=== PATIENT | female | born 1960 | race Caucasian/White ===

== ENCOUNTER 2024-06-05 22:05 | Inpatient (IN) | payer OTHER, SELFPAY ==
[2024-06-05] VITALS (9 sets, daily range): BP systolic 153–164; BP diastolic 90–95; PULSE 105–112; RESP 20–24; TEMP 36.7; O2SAT 89–92
--- NOTE | ~2024-06-05 | XR_ITS ---
EXAMINATION: XR abdomen gastric tube insert DATE: 06/05/2024 23:51 INDICATION: Nasogastric tube placement TECHNIQUE: A supine view of the upper abdomen and mid to lower chest was obtained for evaluation of feeding tube placement. COMPARISON: None. FINDINGS: Nasogastric tube is not identified within the visualized chest and abdomen. Large right pleural effus ion with associated partial collapse of the right lung. Left lung is clear with no pleural effusion. Right heart border is obscured. The left side of the cardiomediastinal silhouette is unremarkable. IMPRESSION: 1. Nasogastric tube is not identified in the visualized chest or abdomen. 2. Large right pleural effusion with partial collapse of the right lung. Reviewed, dictated and finalized at location A. AISAL ANALYST
--- NOTE | ~2024-06-05 | CT_ITS ---
EXAMINATION: CT brain wo con DATE: 06/05/2024 22:59 INDICATION: Altered mental status TECHNIQUE: Computed tomography (CT) of the head was performed without intravenous contrast. Sagittal and coronal reconstructions were performed. The mA was adjusted according to patient size. Iterative reconstruction technique was employed. The dose-length product was 1362.00 mGy-cm. COMPARISON: None FINDINGS: There is some streak artifact on both initial and repeat imaging which mildly limits evaluation as pr ominently at the level of the central cerebellum. No acute intracranial hemorrhage, acute infarction or abnormal extra axial fluid collection. Ventricles are normal and symmetric. No mass/mass effect. T he orbits, paranasal sinuses and mastoid air cells are normal. IMPRESSION: 1. No acute intracranial process. Evaluation mildly limited by scattered streak artifact on both init ial and repeat imaging. Reviewed, dictated and finalized at location A. LEIZING MACHINE TENDER IMPRESSION: 1. No acute intracranial process. Evaluation mildly limited by scattered streak artifact on both initial and repeat imaging.
--- NOTE | ~2024-06-05 | CT_ITS ---
EXAMINATION: CT chest abdomen pelvis wo con DATE: 06/06/2024 01:51 INDICATION: Sepsis TECHNIQUE: Computed tomography (CT) of the chest, abdomen, and pelvis was performed without intraveno us contrast. Automated exposure control and iterative reconstruction technique were employed. The dos e-length product was 406.30 mGy-cm. COMPARISON: None FINDINGS: CHEST CT: Large right pleural effusion. There is complete collapse of the right middle and lower lobes and depe ndent compressive atelectasis in the right upper lobe. There is some leftward midline shift of the he art and mediastinum as well as depression of the right hemidiaphragm. Mild left basilar atelectasis. No evident pneumonia or pulmonary edema in the aerated portions of the lungs. No pneumothorax or left -sided pleural effusion. Heart size is normal. Atherosclerotic coronary artery calcification. No mandi cardial effusion. Thoracic aorta is normal in caliber. No pathologically enlarged thoracic lymphadeno heike. Moderate thoracic spondylosis. Physiologic mild anterior wedging at T12. ABDOMEN/PELVIS CT: Evaluation of portions of the abdomen and pelvis are obscured by motion artifact. There is a moderate amount of ascites throughout the abdomen and pelvis. The liver appears smaller than expected suggest ing possible cirrhosis. Due to motion artifact is unclear whether there is ascites or fluid-filled ga llbladder at the gallbladder fossa. Spleen, pancreas, bilateral adrenal glands and kidneys are normal . There is diffuse colonic wall thickening which could be due to colitis or hepatic colopathy. No bow el obstruction. Bladder is decompressed around a Antoine catheter. Anteverted uterus is unremarkable. N o pathologically enlarged abdominal or pelvic lymphadenopathy. Diffuse body wall edema. Mild lumbar s pondylosis. IMPRESSION: 1. Unilateral large right pleural effusion of indeterminate etiology. Could not exclude underlying geovanna ng disease within the collapsed right middle and lower lobes. This also results in leftward shift the heart and mediastinum and depression of the right hemidiaphragm and would recommend diagnostic and t herapeutic right thoracentesis. 2. Moderate amount of ascites throughout the abdomen and pelvis also indeterminate etiology. The live r appears slightly smaller than expected suggesting possibility of cirrhosis however evaluation is li mited by motion artifact scattered throughout the abdomen and pelvis. Could also consider diagnostic paracentesis. 3. Diffuse wall thickening of the colon which could be due to colitis including infectious, inflammat ory or ischemic etiologies or due to hepatic colopathy in the appropriate clinical setting. Reviewed, dictated and finalized at location A. MENTAL IRON WORKER APPRENTICE IMPRESSION: 1. Unilateral large right pleural effusion of indeterminate etiology. Could not exclude underlying lung disease within the collapsed right middle and lower lo bes. This also results in leftward shift the heart and mediastinum and depressi on of the right hemidiaphragm and would recommend diagnostic and therapeutic ri t thoracentesis. 2. Moderate amount of ascites throughout the abdomen and pelvis also indetermin ate etiology. The liver appears slightly smaller than expected suggesting possi bility of cirrhosis however evaluation is limited by motion artifact scattered throughout the abdomen and pelvis. Could also consider diagnostic paracentesis. 3. Diffuse wall thickening of the colon which could be due to colitis including infectious, inflammatory or ischemic etiologies or due to hepatic colopathy in the appropriate clinical setting.
--- NOTE | ~2024-06-05 | XR_ITS ---
EXAMINATION: XR chest 1V portable DATE: 06/05/2024 22:44 INDICATION: Altered mental status. TECHNIQUE: frontal view of the chest was obtained. COMPARISON: None FINDINGS: Partial collapse of the right lung with surrounding unilateral large right pleural effusion. Underlyi ng pneumonia or malignancy not excludable. Left lung is clear with no airspace opacities, pulmonary e nestor or pleural effusion. No pneumothorax. Right heart border is obscured. Aside the cardiomediastina l silhouette is unremarkable. IMPRESSION: 1. Unilateral large right pleural effusion with partial collapse of the right lung. Underlying lung d isease not excludable and would consider diagnostic thoracentesis. Reviewed, dictated and finalized at location A. MBLY CLEANER IMPRESSION: 1. Unilateral large right pleural effusion with partial collapse of the right l emmie. Underlying lung disease not excludable and would consider diagnostic thora centesis.
--- NOTE | 2024-06-05 22:11 | ECG_ITS ---
Test Date: 2024-06-05 22:14:00 Measurements Intervals [place] Rate: 106 P: 14 MA: 115 QRS: 46 QRSD: 78 T: 61 QT: 360 QTc: 478 Interpretive Statements SINUS TACHYCARDIA WITH SHORT MA INTERVAL ANTEROLATERAL ST AND T-WAVE ABNORMALITY, CONSIDER ISCHEMIA ABNORMAL ECG Electronically Signed On 06-06-2024 09:01:09 TEASEL GIG OPERATOR by Nahum Weber M.D.
--- NOTE | 2024-06-05 22:50 | ED_ITS ---
HPI - General Adult General Chief complaint: Altered Mental Status Stated complaint: AMS, hot to touch, upward gaze, L side withdrawn Time Seen by Provider: 06/05/24 22:07 History of Present Illness HPI narrative: Patient is 64-year-old female presents emergency department with chief complaint of altered mental status. The patient is DNR comfort measures that presents emergency department with chief complaint of altered mental status. Patient has had issues with urinary retention has history of cirrhosis and is unable to provide history. Patient has a documented DNR and active comfort measure order patient is not listed as being in hospice Related Data Allergies Allergy/AdvReac Type Severity Reaction Status Date / Time No Known Allergies Allergy Verified 06/05/24 23:11 Review of Systems 2 Review of Systems: A 10 system review of systems was completed on the patient and is negative except for what is stated in the HPI. Nursing and ancillary documentation was reviewed. Exam 2 Narrative: GENERAL: Well-appearing, well-nourished, and in no acute distress. HEAD: Normocephalic, atraumatic. EYES: PERRLA and EOMI. ENT: Nares clear, no rhinorrhea or epistaxis. Mucous membranes moist. NECK: Supple. CHEST: Clear to auscultation. No respiratory distress. HEART: Regular rate and rhythm. No murmur heard. Normal peripheral pulses. ABDOMEN: Soft, nontender, nondistended, normal active bowel sounds. EXTREMITIES: Normal range of motion. No edema. SKIN: Warm, dry, no rash. NEURO: Opens eyes spontaneously PSYCH: Normal mood and affect. Course Vital Signs Vital signs: Vital Signs Pulse Rate 105 H 06/05/24 22:04 Respiratory Rate 24 H 06/05/24 22:04 Blood Pressure 153/90 H 06/05/24 22:04 Pulse Oximetry 90 06/05/24 22:04 Oxygen Delivery Room Air 06/05/24 22:04 Temperature 36.7 C 06/05/24 23:17 Pulse Rate 109 H 06/06/24 00:30 Respiratory Rate 25 H 06/06/24 00:30 Blood Pressure 136/84 06/06/24 00:30 Pulse Oximetry 92 06/06/24 00:30 Oxygen Delivery Nasal Cannula 06/05/24 23:38 Oxygen Flow Rate 6 06/05/24 23:38 Medical Decision Making [facility] Narrative Medical decision making narrative: Differential diagnosis includes panic pneumonia, sepsis, Laboratory studies were obtained on the patient showed white count 39 6 INR was 2.0 electrolytes showed sodium 135 potassium was 2.3 CO2 was 19 creatinine is 1.2 lactic acid was 4.0 bilirubin is 3.6 AST and ALT were elevated troponin 0.021 BNP was 926 lipase was normal COVID flu RSV were negative ammonia was 156 Patient is given thiamine in the emergency department also given empiric coverage with cefepime and vancomycin The patient is unable tolerate p.o. intake at this time and was given a lactulose enema. Initially the family debated on making the patient back to full code and aggressive management after further discussion the family has subsequently decided that they would prefer to keep the patient comfort measures into not want aggressive treatment on the patient. Vital Signs Vital Signs: Vital Signs Pulse Rate 105 H 06/05/24 22:04 Respiratory Rate 24 H 06/05/24 22:04 Blood Pressure 153/90 H 06/05/24 22:04 Pulse Oximetry 90 06/05/24 22:04 Oxygen Delivery Room Air 06/05/24 22:04 Temperature 36.7 C 06/05/24 23:17 Pulse Rate 109 H 06/06/24 00:30 Respiratory Rate 25 H 06/06/24 00:30 Blood Pressure 136/84 06/06/24 00:30 Pulse Oximetry 92 06/06/24 00:30 Oxygen Delivery Nasal Cannula 06/05/24 23:38 Oxygen Flow Rate 6 06/05/24 23:38 Lab Data 06/05/24 22:32 06/05/24 22:34 Labs: Lab Results 06/05/24 06/05/24 06/06/24 Range/Units 22:32 22:34 00:02 WBC 39.6 H (4.5-10.0) K/mm3 RBC 3.55 L (4.2-5.4) M/mm3 Hgb 10.4 L (12.0-15.0) g/dL Hct 28.9 L (37.0-47.0) % MCV 81.4 (80-100) fl MCH 29.3 (26-34) pg MCHC 36.0 (32-36) g/dl RDW 17.2 H (11.5-14.5) % Plt Count 378 H (150-375) k/mm3 MPV 10.8 H (7.4-10.4) fl Immature Gran % (Auto) 1.4 H (0-0.5) % Neut % (Auto) 89.5 H (45.5-73.1) % Lymph % (Auto) 4.6 L (18.3-44.2) % [place] % (Auto) 4.2 (2.6-8.5) % Eos % (Auto) 0.0 (0-4.4) % Baso % (Auto) 0.3 (0.2-1.2) % Lymph # (Auto) 1.82 (0.9-3.2) K/mm3 [place]kins # (Auto) 1.7 H (0.1-0.6) K/mm3 Eos # (Auto) 0.0 (0-0.3) K/mm3 Baso # (Auto) 0.1 (0.0-0.1) K/mm3 Abs Immat Gran (auto) 0.57 H (0.00-0.031) K/mm3 Absolute Neuts (auto) 35.4 H (1.3-6.7) K/mm3 Absolute Nucleated RBC 0.000 (0.0-0.012) K/mm3 Nucleated RBC % 0.0 (0.0-0.2) % Platelet Estimate Adequate (Adequate) Anisocytosis 1+ Crenated Cell 1+ Schistocytes Rare PT 23.1 H (11.1-14.7) Seconds INR 2.0 APTT 39.3 H (22.3-36.8) Seconds Sodium 135 L (137-145) mmol/L Potassium 2.3 L* (3.4-5.0) mmol/L Chloride 107 (98-107) mmol/L Carbon Dioxide 19 L (22-30) mmol/L Anion Gap 9 (4-12) mmol/L BUN 15 (7-17) mg/dL Creatinine 1.20 H (0.7-1.0) mg/dL Estim Creat Clear Calc 33 ml/min Estimated GFR 45 L (59 - ) Glucose 100 (65-110) mg/dL Lactic Acid 4.0 H (0.7-2.0) mmol/L Calcium 8.3 L (8.4-10.2) mg/dL Magnesium 1.8 (1.6-2.3) mg/dL Total Bilirubin 3.6 H (0.2-1.3) mg/dL AST 75 H (14-36) U/L ALT 36 H (6-35) U/L Alkaline Phosphatase 294 H (38-126) U/L Ammonia 156 H (9-30) umol/L Troponin I 0.021 (0.000-0.034) ng/mL NT-Pro-B Natriuret Pep 929 H (19.9-100) pg/mL Total Protein 6.0 L (6.3-8.2) g/dL Albumin 2.8 L (3.5-5.1) g/dL Lipase 55 (23-300) U/L Nasal MRSA (PCR) Not detected (NOT DETECTE) Influenza A (RT-PCR) Negative (Negative) Influenza B (RT-PCR) Negative (Negative) RSV (RT-PCR) Negative (Negative) SARS-CoV-2 RNA (RT-PCR) Negative (Negative) Critical Care Time Critical Care Time Critical Care Time: Yes Total Critical Care Time: 30 Discharge Plan Discharge Clinical Impression: Acute hepatic encephalopathy, Altered mental status, End stage liver disease Patient Disposition: Still a Patient Condition: Stable Patient Language: Occitan Follow-up/Referrals: Maury,Remberto Zee MD [Primary Care Provider] - Time of Disposition: 01:54
[2024-06-05 22:52] LABS: Basophils Absolute Auto 0.1 K/mm3 (0.0-0.1); Basophils Percent Auto 0.3 % (0.2-1.2); Hematocrit 28.9 % (37.0-47.0); Hemoglobin 10.4 g/dL (12.0-15.0); Immature Granulocyte Absolute 0.57 K/mm3 (0.00-0.031); Immature Granulocyte Percent A 1.4 % (0-0.5); Lymphocytes Absolute Auto 1.82 K/mm3 (0.9-3.2); Lymphocytes Percent Auto 4.6 % (18.3-44.2); Mean Corpuscular Hemoglobin 29.3 pg (26-34); Mean Corpuscular Volume 81.4 fl (80-100); Mean Platelet Volume 10.8 fl (7.4-10.4); Monocytes Absolute Auto 1.7 K/mm3 (0.1-0.6); Monocytes Percent Auto 4.2 % (2.6-8.5); Neutrophils Absolute Auto 35.4 K/mm3 (1.3-6.7); Neutrophils Percent Auto 89.5 % (45.5-73.1); Platelet Count Result 378 k/mm3 (150-375); Red Blood Count 3.55 M/mm3 (4.2-5.4); Red Cell Distribution Width 17.2 % (11.5-14.5); White Blood Count 39.6 K/mm3 (4.5-10.0)
[2024-06-05 22:56] LABS: Ammonia 156 umol/L (9-30)
[2024-06-05 23:02] LABS: Alanine Aminotransferase 36 U/L (6-35); Albumin Level 2.8 g/dL (3.5-5.1); Alkaline Phosphatase 294 U/L (38-126); Anion Gap 9 mmol/L (4-12); Aspartate Amino Transferase 75 U/L (14-36); Bilirubin,Total 3.6 mg/dL (0.2-1.3); Blood Urea Nitrogen 15 mg/dL (7-17); Calcium 8.3 mg/dL (8.4-10.2); Carbon Dioxide 19 mmol/L (22-30); Chloride 107 mmol/L (98-107); Estimated CRCL calculation 33 ml/min; Estimated Glomerular Filt Rate 45; Glucose 100 mg/dL (65-110); Lipase 55 U/L (23-300); Magnesium 1.8 mg/dL (1.6-2.3); Potassium 2.3 mmol/L (3.4-5.0); Sodium 135 mmol/L (137-145)
[2024-06-05 23:05] LABS: Prothrombin Time 23.1 Seconds (11.1-14.7)
[2024-06-05 23:06] LABS: Partial Thromboplastin Time 39.3 Seconds (22.3-36.8)
[2024-06-05 23:11] LABS: NT Pro B Type Natriuretic Pept 929 pg/mL (19.9-100); Troponin I 0.021 ng/mL (0.000-0.034)
[2024-06-05 23:17] LABS: Anisocytosis 1+; Crenated RBC 1+; Platelet Estimate Adequate (Adequate); Schistocytes Rare
[2024-06-05 23:28] LABS: Influenza A QL RT-PCR Negative (Negative); Influenza B QL RT-PCR Negative (Negative); RSV RNA, RT-PCR Negative (Negative); SARS-CoV-2 RNA PCR Negative (Negative)
[2024-06-06] VITALS (9 sets, daily range): BP systolic 98–146; BP diastolic 53–103; PULSE 82–114; RESP 12–25; TEMP 36.3–37; O2SAT 91–98; BMI 18.2
[2024-06-06] MEDS: CEFEPIME 2 GM/NS 50 ML 2 GM/50 ML BAG IVPB (00:09)
[2024-06-06] MEDS: THIAMINE 500 MG/NS 100 ML 500 MG/100 ML BAG 200 MG IVPB (00:09)
[2024-06-06] MEDS: LACTULOSE ENEMA 200 GM/1,000 ML ENEMA RECTAL (00:14)
[2024-06-06] MEDS: VANCOMYCIN 1,500 MG/NS 500 ML 1,500 MG/500 ML BAG 250 MG IVPB (00:44)
--- NOTE | 2024-06-06 00:59 | PC.NURSE ---
pt unable to swallow lactulose at this time. edp dr. arriola vormalaika a ng tube to be placed. pt is in rigid posturing at this time and unable to bend neck downward and drink water to help with insertion of ng tube. ng tube was attempted x2 times with edp at bedside. pt unable to tolerate ng tube. edp dr. zeinab marvin cancellation of ng tube at this time and vorb a lactulaose enema at this time. lactulose enema given and patient was able to tolerate enema fairly. pt had bowel movement. this rn did a partial bed bath and bed change. pt tolerated well. patient currently still on 6L NC due to poor oxygenation. pt is still rigied in bilateral upper and lower extremities.
[2024-06-06 01:26] LABS: MRSA (PCR) NOT DETECTED (NOT DETECTE)
[2024-06-06 01:53] LABS: Reflex Lactic Acid Yes or No Add Lactic
--- NOTE | 2024-06-06 02:06 | P.HP_ITS ---
H&P: HPI History of Present Illness Date/Time: 06/06/24 02:06 Chief Complaint: Altered mental status Narrative: This is a 64-year-old female with past medical history significant for hepatic cirrhosis patient has had progressive decline over the course of the last 3-4 months, family brings her today due to altered mental status. Patient is unable to give any history due to her stuporous state. Decision has been made to make the patient comfort care only. Review of Systems Review of Systems: ROS unobtainable: Yes unobtainable due to mental status (Stuporous) Meds Home Medications and Allergies Allergies Allergy/AdvReac Type Severity Reaction Status Date / Time No Known Allergies Allergy Verified 06/05/24 23:11 Vital Signs Vital Signs - 24 hr 06/05/24 22:04 06/05/24 22:21 06/05/24 22:23 Temperature Pulse Rate 105 H Respiratory Rate 24 H Blood Pressure 153/90 H Pulse Oximetry 90 90 90 Oxygen Delivery Room Air Room Air Oxygen Flow Rate 06/05/24 22:30 06/05/24 22:31 06/05/24 23:17 Temperature 98.1 F Pulse Rate 105 H 107 H Respiratory Rate 21 H 20 Blood Pressure 157/93 H Pulse Oximetry 90 89 L Oxygen Delivery Oxygen Flow Rate 06/05/24 23:26 06/05/24 23:36 06/05/24 23:38 Temperature Pulse Rate 112 H 110 H Respiratory Rate 22 H Blood Pressure 164/95 H Pulse Oximetry 89 L 92 Oxygen Delivery Nasal Cannula Oxygen Flow Rate 6 06/06/24 00:15 06/06/24 00:30 Temperature Pulse Rate 114 H 109 H Respiratory Rate 24 H 25 H Blood Pressure 146/103 H 136/84 Pulse Oximetry 92 92 Oxygen Delivery Oxygen Flow Rate Exam Narrative: Patient is terminal looking laying in a stretcher Const: General: other (Terminal looking, stuporous) Nutritional Appearance: thin HENMT: Head: normal to inspection, normocephalic and atraumatic Ears: hearing grossly normal bilaterally Face/Nose/Sinus: normal facial exam Face and sinus: normal facial exam Other: Bilateral temporal muscle wasting Eyes: General: appearance normal, both eyes and all related structures Pupils: Equal, round and reactive pupils present Other: Icteric Neck: Neck: normal visual inspection and JVD Resp: Effort & Inspection: respiratory distress, tachypneic and uses accessory muscles Auscultation: diminished lung sounds on the right throughout Cardio: Jugular venous distension: no JVD Rate: regular rate Rhythm: regular rhythm Heart sounds: S1 normal heart sound present and S2 normal heart sound present GI: Inspection: distended and caput medusae present : General: Yes deferred Skin: Other: Ecchymosis Neuro: Cognition (Neuro): abnormal cognition (A stuporous) Extrem: General: normal to inspection, full ROM, no joint enlargement and no pedal edema Other: Ecchymotic lesions excoriations bilateral upper extremities H&P: Results Labs Labs: Short CBC 06/05/24 Range/Units 22:32 WBC 39.6 H (4.5-10.0) K/mm3 Hgb 10.4 L (12.0-15.0) g/dL Hct 28.9 L (37.0-47.0) % Plt Count 378 H (150-375) k/mm3 BMP 06/05/24 22:34 Sodium 135 L Potassium 2.3 L* Chloride 107 Carbon Dioxide 19 L BUN 15 Creatinine 1.20 H Glucose 100 Calcium 8.3 L Cardiac Enzymes 06/05/24 Range/Units 22:34 Troponin I 0.021 (0.000-0.034) ng/mL Liver Function 06/05/24 Range/Units 22:34 Total Bilirubin 3.6 H (0.2-1.3) mg/dL AST 75 H (14-36) U/L ALT 36 H (6-35) U/L Alkaline Phosphatase 294 H (38-126) U/L Albumin 2.8 L (3.5-5.1) g/dL Assessment and Plan Assessment and plan (1) End stage liver disease: Code(s): K72.10 - Chronic hepatic failure without coma Status: Acute Assessment and Plan: Comfort care measures only (2) Altered mental status: Code(s): R41.82 - Altered mental status, unspecified Status: Acute Assessment and Plan: Comfort care measures only (3) Acute hepatic encephalopathy: Code(s): K76.82 - Hepatic encephalopathy Status: Acute Assessment and Plan: Comfort care measures only Plan Discussed with son at bedside patient with advanced directives do not resuscita te comfort care measures only
--- NOTE | 2024-06-06 02:29 | PC.NURSE ---
per edp dr. arriola pt to discontinue KCL due to patient being comfort measures only at this time. this rn used closed loop communication to confirm cancellation. edp dr. arriola confirmed.
--- NOTE | 2024-06-06 03:02 | ADMGEN ---
This patient, Vilma Lopez, was admitted to 2 Medical Room 255-01. Patient/family oriented to hospital policies and general routines including ID bracelet, bed and alarms, visiting hours, pain management, procedures, bathroom and other care routines, personal items, smoking policy, room service/diet, and visiting hours. Information on how to activate the Rapid Response Team has been discussed. Patient/Family are encouraged to report perceived risks to care and to ask questions if they do not understand what they are told or what they should do.
[2024-06-06] MEDS: MORPHINE SULFATE (*CRX) 4 MG/ML INJ IV PUSH (03:09)
[2024-06-06] MEDS: LORazepam INJ (*CRX) 2 MG/ML VIAL IV PUSH ×4 (03:28→22:39)
[2024-06-06] MEDS: MORPHINE 50 MG/NS 100ML (*CRX) 50 MG/100 ML BAG IV CONT (04:09)
--- NOTE | 2024-06-06 10:30 | P.PNIM_ITS ---
Progress Note: A&P Assessment and Plan (1) End stage liver disease: Code(s): K72.10 - Chronic hepatic failure without coma Status: Acute Assessment and Plan: Comfort care measures only (2) Altered mental status: Code(s): R41.82 - Altered mental status, unspecified Status: Acute Assessment and Plan: Comfort care measures only (3) Acute hepatic encephalopathy: Code(s): K76.82 - Hepatic encephalopathy Status: Acute Assessment and Plan: Comfort care measures only Plan Discussed with son at bedside patient with advanced directives do not resuscitate comfort care measures only care coordination consult for discharge planning Time Spent With Patient Time with patient: Greater than 35 minutes Subjective Date/time seen: 06/06/24 10:30 Interval history: Altered mental status Narrative: This is a 64-year-old female with past medical history significant for hepatic cirrhosis patient has had progressive decline over the course of the last 3-4 months, family brings her today due to altered mental status. Patient is unable to give any history due to her stuporous state. Decision has been made to make the patient comfort care only. care coordination consulted for hospice/comfort measures Review of Systems Review of Systems: ROS unobtainable: Yes unobtainable due to mental status (Stuporous) Exam Narrative: Patient is terminal looking laying in a stretcher Const: General: thin and other (Terminal looking, stuporous) Nutritional Appearance: thin HENMT: Head: normal to inspection, normocephalic and atraumatic Ears: hearing grossly normal bilaterally Face/Nose/Sinus: normal facial exam Face and sinus: normal facial exam Other: Bilateral temporal muscle wasting Eyes: General: appearance normal, both eyes and all related structures Pupils: Equal, round and reactive pupils present Other: Icteric Neck: Neck: normal visual inspection and JVD Resp: Effort & Inspection: respiratory distress, tachypneic and uses accessory muscles Auscultation: diminished lung sounds on the right throughout Cardio: Jugular venous distension: no JVD Rate: regular rate Rhythm: regular rhythm Heart sounds: S1 normal heart sound present and S2 normal heart sound present GI: Inspection: distended and caput medusae present : General: Yes deferred Skin: Other: Ecchymosis Neuro: Cranial nerves: Yes Equal, round and reactive pupils present Cognition (Neuro): abnormal cognition (A stuporous) Extrem: General: normal to inspection, full ROM, no joint enlargement and no pedal edema Other: Ecchymotic lesions excoriations bilateral upper extremities Objective Data Vital Signs Vital Signs: Vital Signs - 24 hr 06/05/24 22:04 06/05/24 22:21 06/05/24 22:23 Temperature Pulse Rate 105 H Respiratory Rate 24 H Blood Pressure 153/90 H Pulse Oximetry 90 90 90 Oxygen Delivery Room Air Room Air Oxygen Flow Rate 06/05/24 22:30 06/05/24 22:31 06/05/24 23:17 Temperature 98.1 F Pulse Rate 105 H 107 H Respiratory Rate 21 H 20 Blood Pressure 157/93 H Pulse Oximetry 90 89 L Oxygen Delivery Oxygen Flow Rate 06/05/24 23:26 06/05/24 23:36 06/05/24 23:38 Temperature Pulse Rate 112 H 110 H Respiratory Rate 22 H Blood Pressure 164/95 H Pulse Oximetry 89 L 92 Oxygen Delivery Nasal Cannula Oxygen Flow Rate 6 06/06/24 00:15 06/06/24 00:30 06/06/24 02:24 Temperature Pulse Rate 114 H 109 H Respiratory Rate 24 H 25 H Blood Pressure 146/103 H 136/84 Pulse Oximetry 92 92 95 Oxygen Delivery Nasal Cannula Oxygen Flow Rate 5 06/06/24 04:35 06/06/24 07:56 Temperature 98.6 F Pulse Rate 100 Respiratory Rate 24 H Blood Pressure 110/64 Pulse Oximetry 92 93 Oxygen Delivery Nasal Cannula Oxygen Flow Rate 5 Intake/Output Intake/Output: Intake & Output 06/03/24 06/04/24 06/05/24 06/06/24 23:59 23:59 23:59 23:59 Intake Total 650 Balance 650 Meds/Results Medications: Active Medications Generic Name Dose Route Start Last Admin Trade Name Freq PRN Reason Stop Dose Admin Morphine Sulfate 50 mg in 100 mls @ 2 mls/hr 06/06/24 03:20 06/06/24 04:09 IV CONT 1 mg/hr .Q24H JEMIMA 2 mls/hr Administration 1 MG/HR Lorazepam 1 mg 06/06/24 03:20 Lorazepam (*Crx) 2 Mg/Ml 30 Ml Oral Concentrate SUBLINGUAL Q6H PRN Anxiety Lorazepam 2 mg 06/06/24 03:20 Lorazepam Inj (*Crx) 2 Mg/Ml Vial IV PUSH Q2H PRN Agitation Morphine Sulfate 5 mg 06/06/24 03:20 Morphine Sulfate Oral Conc Samira (*Crx) 10 Mg/0.5 Ml Syringe PO Q4H PRN Pain Rated 7-10 Radiology Results: ITS Impressions Abdomen X-Ray 06/06/24 07:49 IMPRESSION: 1. Nasogastric tube is not identified in the visualized chest or abdomen. 2. Large right pleural effusion with partial collapse of the right lung. Chest X-Ray 06/06/24 08:00 IMPRESSION: 1. Unilateral large right pleural effusion with partial collapse of the right lung. Underlying lung disease not excludable and would consider diagnostic thoracentesis. Head CT 06/06/24 08:10 IMPRESSION: 1. No acute intracranial process. Evaluation mildly limited by scattered streak artifact on both initial and repeat imaging. Chest/Abdomen/Pelvis CT 06/06/24 09:15 IMPRESSION: 1. Unilateral large right pleural effusion of indeterminate etiology. Could not exclude underlying lung disease within the collapsed right middle and lower lobes. This also results in leftward shift the heart and mediastinum and depression of the right hemidiaphragm and would recommend diagnostic and therapeutic right thoracentesis. 2. Moderate amount of ascites throughout the abdomen and pelvis also indeterminate etiology. The liver appears slightly smaller than expected suggesting possibility of cirrhosis however evaluation is limited by motion artifact scattered throughout the abdomen and pelvis. Could also consider diagnostic paracentesis. 3. Diffuse wall thickening of the colon which could be due to colitis including infectious, inflammatory or ischemic etiologies or due to hepatic colopathy in the appropriate clinical setting. Labs Labs: Laboratory Results - last 24 hr 06/05/24 06/05/24 06/06/24 22:32 22:34 00:02 WBC 39.6 H RBC 3.55 L Hgb 10.4 L Hct 28.9 L MCV 81.4 MCH 29.3 MCHC 36.0 RDW 17.2 H Plt Count 378 H MPV 10.8 H Immature Gran % (Auto) 1.4 H Neut % (Auto) 89.5 H Lymph % (Auto) 4.6 L [place] % (Auto) 4.2 Eos % (Auto) 0.0 Baso % (Auto) 0.3 Lymph # (Auto) 1.82 [place] # (Auto) 1.7 H Eos # (Auto) 0.0 Baso # (Auto) 0.1 Abs Immat Gran (auto) 0.57 H Absolute Neuts (auto) 35.4 H Absolute Nucleated RBC 0.000 Nucleated RBC % 0.0 Platelet Estimate Adequate Anisocytosis 1+ Crenated Cell 1+ Schistocytes Rare PT 23.1 H INR 2.0 APTT 39.3 H Sodium 135 L Potassium 2.3 L* Chloride 107 Carbon Dioxide 19 L Anion Gap 9 BUN 15 Creatinine 1.20 H Estim Creat Clear Calc 33 Estimated GFR 45 L Glucose 100 Lactic Acid 4.0 H Calcium 8.3 L Magnesium 1.8 Total Bilirubin 3.6 H AST 75 H ALT 36 H Alkaline Phosphatase 294 H Ammonia 156 H Troponin I 0.021 NT-Pro-B Natriuret Pep 929 H Total Protein 6.0 L Albumin 2.8 L Lipase 55 Nasal MRSA (PCR) Not detected Influenza A (RT-PCR) Negative Influenza B (RT-PCR) Negative RSV (RT-PCR) Negative SARS-CoV-2 RNA (RT-PCR) Negative
[2024-06-06] MEDS: SCOPOLAMINE 1 MG PATCH 1 PATCH TRANSDERM (22:39)
[2024-06-07] MEDS: MORPHINE 50 MG/NS 100ML (*CRX) 50 MG/100 ML BAG IV CONT (06:17)
[2024-06-07] MEDS: GLYCOPYRROLATE INJ (*SP) 0.2 MG/ML VIAL IV PUSH (06:51)
[2024-06-07 08:00] VITALS: BP 93/56; PULSE 100; RESP 14; TEMP 36.1; O2SAT 90
--- NOTE | 2024-06-07 13:27 | PCDIET ---
Nutrition note: Screen MST 3, unsure of weight loss. NPO, not able to take in PO because of encephalopathy. Pt is comfort care with SS consult for comfort care/hospice care. No nutrition needs at this time. Please consult if nutrition needs arise.
[2024-06-07] MEDS: LORazepam INJ (*CRX) 2 MG/ML VIAL IV PUSH (15:27)
--- NOTE | 2024-06-07 16:13 | P.DS_ITS ---
DS: Admitting Diagnosis Discharge Date 06/07/24 Admitting Diagnosis Acute Hepatic Encephalopathy, AMS, End stage liver disease DS: Discharge Diagnosis Discharge Diagnosis (1) End stage liver disease: Code(s): K72.10 - Chronic hepatic failure without coma Status: Chronic Assessment and Plan: Comfort care measures only 06/07/24: * In setting of having Cirrhosis of the liver, mostly untreated for years according to family despite their pleas to obtain treatment. * Pt with declining over the past 3-4 months. * Family at bedside and requests hospice care and admission for end of life. * Labs reviewed: Lactic acid 4.0, T-Bili 3.6, Ammonia 156 * Pt appeared stuporous upon arrival according to admitting physician. * Hospice is consulted and family is ready to move forward. [facility] is chosen for further treatment. * Pt on Morphine drip. * Scopolomine patch and Atropine drops ordered for secretions that are audible. (2) Altered mental status: Code(s): R41.82 - Altered mental status, unspecified Status: Acute Assessment and Plan: Comfort care measures only 06/07/24: * See plan for #1 (3) Acute hepatic encephalopathy: Code(s): K76.82 - Hepatic encephalopathy Status: Acute Assessment and Plan: Comfort care measures only 06/07/24: * See Plan for #1. DS: Summary Hospital Course Reason for hospitalization: Hepatic failure in setting of Cirrhosis of the liver, Altered Mental Status Hospital Course: This 64 year old female with PMH of Cirrhosis of the liver secondary to alcohol abuse in her history. Pt presents stuporous and appearing encephalopathic. Her labs are abnormal on arrival with Lactic acid of 4.0, T-Bili of 3.6, AST of 75, ALT 36, Ammonia of 156, Alk phos of 294, and BNP of 929. Head CT is unremarkable and CT C/A/P showing a unilateral large right pleural effusion w/possible collapsed RML and RLL. There was also leftward shift in the heart and mediastinum and depression of the right hemidiaphragm and would recommend right thoracentesis. There was a moderate amount of noted ascites throughout the abdomen and pelvis that was indeterminate. There was diffuse wall thickening of the colon which could be due to the colitis including infectious, inflammatory or ischemic etiologies or due to hepatic colopathy in the appropriate clinical setting. After being presented with the current state of pt's health, the family upholds the decision to move forward with hospice. [facility]BIE was consulted, and pt will be admitted to inpatient hospice tonight. Status at Discharge Cognitive/behavioral status at discharge: Unable to assess as pt is not responsive. Functional status at discharge: bed bound Overall status at discharge: other (end of life care) Time Spent with Patient Time attestation: Total time spent providing and/or coordinating discharge services: Time spent: Greater than 30 minutes Specific discharge activities: end of life care Exam Const: Other: Pt with impending . She is not responsive to verbal or tactile stimuli. HENMT: Other: Dry mucous membranes. Mouth breathing Eyes: General: appearance normal, both eyes and all related structures Other: Pupils are 5 mm bilaterally and not reactive. + Icterus Pt does not follow commands to assess EOMs. Resp: Other: Lung sounds are decreased throughout, and there are audible rales and periods of pausing of respirations. Cardio: Other: Tachycardia, regular. + Rub GI: Inspection: distended GI Palp: Yes Firmness to palpation present (GI) Auscultation: abnormal bowel sounds (absent) Other: + Fluid wave Urinary Catheter: Urinary Catheter: patent and draining and urine dark Skin: General skin exam: rashes and/or lesions noted Lesions: lesion noted (Scattered bruising on BUE.) Neuro: Other: GCS: 3 Does not respond to stimuli. Extrem: Other: No edema. Psych: Other: Unresponsive DS: Data Data Completed and Pending Completed studies during hospitalization: ITS Impressions Abdomen X-Ray 06/06/24 07:49 IMPRESSION: 1. Nasogastric tube is not identified in the visualized chest or abdomen. 2. Large right pleural effusion with partial collapse of the right lung. Chest X-Ray 06/06/24 08:00 IMPRESSION: 1. Unilateral large right pleural effusion with partial collapse of the right lung. Underlying lung disease not excludable and would consider diagnostic thoracentesis. Head CT 06/06/24 08:10 IMPRESSION: 1. No acute intracranial process. Evaluation mildly limited by scattered streak artifact on both initial and repeat imaging. Chest/Abdomen/Pelvis CT 06/06/24 09:15 IMPRESSION: 1. Unilateral large right pleural effusion of indeterminate etiology. Could not exclude underlying lung disease within the collapsed right middle and lower lobes. This also results in leftward shift the heart and mediastinum and depression of the right hemidiaphragm and would recommend diagnostic and therapeutic right thoracentesis. 2. Moderate amount of ascites throughout the abdomen and pelvis also indeterminate etiology. The liver appears slightly smaller than expected suggesting possibility of cirrhosis however evaluation is limited by motion artifact scattered throughout the abdomen and pelvis. Could also consider diagnostic paracentesis. 3. Diffuse wall thickening of the colon which could be due to colitis including infectious, inflammatory or ischemic etiologies or due to hepatic colopathy in the appropriate clinical setting. Labs on day of discharge: Preliminary micro results at discharge 06/06/24 00:00 Blood Culture - Preliminary Blood 06/06/24 00:02 Blood Culture - Preliminary Blood Discharge Plan Discharge Attending physician on discharge: Cyndi Arnett Discharging Clinician: Cyndi Arnett Anticipated Discharge Date/Time: 06/07/24 16:46 Patient Disposition: Other Activity: other - see discharge instructions Diet: NPO Discharge Instructions: Discharge to inpatient [facility] Hospice. End of life is imminent. Patient Language: Hungarian Stand Alone Forms: General Discharge Information Discharge Medications: Discontinued oxymetazoline [12 Hour Nasal Relief [place]] 0.05 % spray,non-aerosol 2 spray intranasal Q12H ascorbic acid (vitamin C) 500 mg capsule 500 mg PO DAILY atorvastatin 20 mg tablet 20 mg PO QPM ferrous sulfate [iron] 325 mg (65 mg iron) tablet 325 mg PO DAILY folic acid 1 mg tablet 1 mg PO DAILY furosemide 40 mg tablet 40 mg PO DAILY lactulose 10 gram/15 mL (15 mL) solution 20 g PO QID nystatin 100,000 unit/gram powder 1 applic TOPICAL DAILY Rx Instructions: TO MOISTURE AREAS cholestyramine (with sugar) 4 gram powder in packet 1 ea PO BID rifaximin 550 mg tablet 550 mg PO BID spironolactone 25 mg tablet 25 mg PO DAILY thiamine mononitrate (vit B1) 100 mg tablet 100 mg PO DAILY No Action magnesium 200 mg tablet 400 mg PO DAILY Date of admission: 06/06/24 01:51 Primary Care Provider: MauryRemberto Admitting Provider: Faby Trivedi V. Attending physician on admission: Cyndi Arnett Condition: Terminal Care Plan Goals: Inpatient hospice to provide end of life care. Quality If No VTE Prophylaxis Answer both mechanical and pharmacologic: Reason no mechanical VTE proph: medical contraindication (end of life care) Reason no pharmacologic proph: medical contraindication (end of life care) Hospitalist MIPS Heart Failure (Exclusion) Patient has history of Heart Transplant or Left Ventricular Assistive Device?: No IF YES, STOP HERE Heart Failure (Qualifier) Patient has current or prior documentation of LVEF less than or equal to 40%, or mod/servere depressed LVSF?: No IF NO, STOP HERE
== END 2024-06-07 18:13 | disposition other institution (70) | DRG 442 ==
LOC: ANHED 06-06 01:54 → ANH2MED 06-06 02:21
PROVIDERS: Admitting Provider Internal Medicine; Emergency Provider Emergency Medicine; PCP Family Medicine; Visit Provider Nurse Practitioner Adult Health
DX: K72.10 Chronic hepatic failure without coma (principal); J90 Pleural effusion, not elsewhere classified; R18.8 Other ascites; K76.82 Hepatic encephalopathy; Z20.822 Contact with and (suspected) exposure to COVID-19; K74.60 Unspecified cirrhosis of liver; Z51.5 Encounter for palliative care
CPT/HCPCS: 36415; 70450; 71045; 71250; 74176; 80053; 82140; 83605; 83690; 83735; 83880; 84484; 85025; 85610; 85730; 87040; 87637; 87641; 93005; 96365; 96367; 99285; A9270; J0692; J1596; J2060; J2270; J3370; J3411

== ENCOUNTER 2024-06-07 18:39 | HOS | payer OTHER, SELFPAY ==
[2024-06-07 18:53] VITALS: BMI 18.2
--- NOTE | 2024-06-07 19:08 | P.HP_ITS ---
H&P: HPI History of Present Illness Date/Time: 06/07/24 19:09 Chief Complaint: Hepatic encephalopathy, end stage liver disease choosing Hospice care. Narrative: Ms Lopez is a 64 yo female with end stage liver disease due to cirrhosis. The family brought her to the [facility] ED for altered mental status. I saw her via telehealth with the assistance of the admissions nurse this afternoon. Per the DC summary: * In setting of having Cirrhosis of the liver, mostly untreated for years according to family despite their pleas to obtain treatment. * Pt with declining over the past 3-4 months. * Family at bedside and requests hospice care and admission for end of life. * Labs reviewed: Lactic acid 4.0, T-Bili 3.6, Ammonia 156 * Pt appeared stuporous upon arrival according to admitting physician. * Hospice is consulted and family is ready to move forward. [facility] is chosen for further treatment. * Pt on Morphine drip. * Scopolomine patch and Atropine drops ordered for secretions that are audible. Review of Systems Review of Systems: ROS unobtainable: Yes unobtainable due to mental status PMFSH Family History Family History Mother Acute myocardial infarction Father Colon cancer Social History Social History Smoking status: Former smoker Alcohol intake: former Substance use: former Substance use type: marijuana Do You Feel Safe in your Home?: Yes Lack of Transportation: No Lack of Food: Never True Current Housing: I Have Housing Concerned About Future Housing: No Difficulty Paying Gas/Electric Bills: No Difficulty Paying for Meds: No Currently Unemployed: No Education: Bachelor's Degree Difficulty w/ Childcare or Family Care: No Spiritual care concerns: No Meds Home Medications and Allergies Home Medications ?Medication ?Instructions ?Recorded ?Confirmed ?Type No Home Medications 06/07/24 06/07/24 History Allergies Allergy/AdvReac Type Severity Reaction Status Date / Time No Known Allergies Allergy Verified 06/05/24 23:11 Exam Const: General: comfortable and patient obtunded Nutritional Appearance: overweight Orientation/consciousness: patient obtunded Cardio: Other: Has audible secretions but breathing does not appear labored. Skin: Other: jaundiced. Assessment and Plan Assessment and plan (1) Hospice care: Code(s): Z51.5 - Encounter for palliative care Status: Acute Assessment and Plan: Admitted to [facility] with end stage liver disease. Requiring a morphine drip for comfort. Hospitalist had started atropine, scopalamine for secretions. She has prn ativan as well. (2) End stage liver disease: Code(s): K72.10 - Chronic hepatic failure without coma Status: Chronic (3) Acute hepatic encephalopathy: Code(s): K76.82 - Hepatic encephalopathy Status: Acute
[2024-06-07 19:30] VITALS: PULSE 97; RESP 16
[2024-06-07] MEDS: MORPHINE SULFATE INJ (*CRX) 50 MG in SODIUM CHLORIDE 0.9% IV 95 ML IV CONT (19:30)
[2024-06-07] MEDS: ATROPINE SULFATE 1% OPHTH SOLN 5 ML BOTTLE 1 DROP SUBLINGUAL (19:55)
[2024-06-07] MEDS: SCOPOLAMINE 1 MG PATCH 1 PATCH TRANSDERM (19:55)
[2024-06-07] MEDS: LORazepam INJ (*CRX) 2 MG/ML VIAL IV PUSH ×2 (19:55→21:49)
[2024-06-07 20:00] VITALS: O2SAT 79
[2024-06-07 21:30] VITALS: BP 81/37; PULSE 89; RESP 22; TEMP 36; O2SAT 85
[2024-06-07] MEDS: MORPHINE SULFATE ORAL CONC SOL (*CRX) 10 MG/0.5 ML SYRINGE 5 MG PO (21:40)
[2024-06-07] MEDS: GLYCOPYRROLATE INJ (*SP) 0.2 MG/ML VIAL IV PUSH (21:50)
[2024-06-08] MEDS: ATROPINE SULFATE 1% OPHTH SOLN 5 ML BOTTLE 1 DROP SUBLINGUAL ×2 (01:05→04:48)
[2024-06-08] MEDS: LORazepam INJ (*CRX) 2 MG/ML VIAL IV PUSH ×2 (01:05→04:02)
[2024-06-08] MEDS: MORPHINE SULFATE ORAL CONC SOL (*CRX) 10 MG/0.5 ML SYRINGE 5 MG PO ×2 (01:07→03:40)
[2024-06-08] MEDS: GLYCOPYRROLATE INJ (*SP) 0.2 MG/ML VIAL IV PUSH (03:35)
[2024-06-08 03:47] VITALS: PULSE 73; RESP 26
[2024-06-08] MEDS: MORPHINE SULFATE (*CRX) 4 MG/ML INJ IV PUSH (04:01)
--- NOTE | 2024-06-08 10:01 | PM.DDS ---
Discharge Summary Date and Time Date of : 06/08/24 Time of : 05:25 Provider Pronounced By: 2 RNs Name of First RN That Pronounced: Pushpa Grier Name of Second RN That Pronounced: Roseline Garcia Probable Cause of Probable Cause of : End stage liver disease Summary Hospital Course: Ms Lopez is a 64 yo female with end stage liver disease due to cirrhosis. The family brought her to the [facility] ED for altered mental status. Her ammonia level was elevated and her hepatic encephalopathy worsened. Family requested comfort care/hospice. She was started on a morphine drip for signs of pain and increased work of breathing and admitted to [facility] hospice on 06/07/2024. Additional Data Confirmation of as documented by pronouncing clinician: Pupillary Reflex, Palpable Pulses, Response to Stimuli, Heart Tones and Breath Sounds Name of Provider Notified: Dr. Ramírez Time Provider Notified: 06:05 Provider Requests Autopsy: No Family Requests Autopsy: No Project Management Consultant Notified: Yes Date [facility] Notified of : 06/08/24 Time [facility] Notified of : 05:42
== END 2024-06-08 05:25 | disposition expired | DRG 951 ==
PROVIDERS: Admitting Provider Internal Medicine Adolescent Medicine; PCP Family Medicine; Visit Provider Internal Medicine Adolescent Medicine
DX: Z51.5 Encounter for palliative care (principal); K70.30 Alcoholic cirrhosis of liver without ascites; K72.10 Chronic hepatic failure without coma; K76.82 Hepatic encephalopathy; Z66 Do not resuscitate
CPT/HCPCS: A9270; J1596; J2060; J2270